=== PATIENT | female | born 1990 | race Caucasian/White ===

== ENCOUNTER 2016-11-27 02:39 | Emergency (ER) | payer SELFPAY ==
[~2016-11-27] VITALS: Ht 162.6 cm; Wt 49.9 kg
--- NOTE | 2016-11-27 02:55 | NUR ---
PT AMBULATED TO THE BATHROOM TO GIVE A URINE SAMPLE.
--- NOTE | 2016-11-27 02:59 | NUR ---
URINE SAMPLE OBTAINED. PT TRIAGED IN ROOM #4. PT IS C/O ABD PAIN SINCE YESTERDAY. PT STATED THAT HER BM'S WERE NORMAL. PT'S LMP WAS 11/22/16 AND FINISHED 2 DAYS AGO. 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 PT STATED THAT HER PAIN IS NOW 5/10. PT IS ON THE MONITOR AND CONTINUOUS PULSE OX.
--- NOTE | 2016-11-27 03:05 | NUR ---
JUDAH MCHUGH IS AT THE BEDSIDE.
--- NOTE | 2016-11-27 03:20 | NUR ---
KUB DONE AT THE BEDSIDE
--- NOTE | 2016-11-27 04:31 | NUR ---
PT APPEARS TO BE SLEEPING SOUNDLY WITH NO S/S OF PAIN OR DISTRESS NOTED.
--- NOTE | 2016-11-27 04:31 | NUR ---
Maryan sanchez in [facility] - 11/27/16 at 0431 by CHRISTOPH PT APPEARS TO BE SLEEPING SOUNDLY WITH NO S/S OF PAIN OR DISTRESS NOTED.
--- NOTE | 2016-11-27 04:31 | NUR ---
PT APPEARS TO BE SLEEPING SOUNDLY WITH NO S/S OF PAIN OR DISTRESS NOTED.
[2016-11-27 04:50] LABS: APPEARANCE,URINE CLOUDY (CLEAR); BILIRUBIN,URINE NEGATIVE (NEGATIVE); BLOOD, URINE NEGATIVE Ery/uL (NEGATIVE); COLOR,URINE YELLOW (YELLOW); KETONES,URINE NEGATIVE (NEGATIVE); LEUKOCYTE ESTERASE ,URINE NEGATIVE (NEGATIVE); NITRITE, URINE NEGATIVE (NEGATIVE); PH,URINE 7.5 (5.0-8.0); PROTEIN,URINE NEGATIVE (NEGATIVE); UGLUCOSE NEGATIVE (NEGATIVE); UROBILINOGEN,URINE 0.2 EU/dL (0.2)
[2016-11-27 04:54] LABS: BACTERIA,URINE 2+ /HPF (None Seen); RBC,URINE 0-2 /HPF (0-2); SQUAMOUS EPITHELIAL CELL,UR Few /HPF (None Seen); URINE AMORPHOUS URATE Many /HPF (None Seen); WBC,URINE 0-2 /HPF (0-3)
--- NOTE | 2016-11-27 05:03 | NUR ---
Patient discharged to home in stable condition. Written and verbal after care instructions given. Patient verbalizes understanding of instruction AND RX. PT AMBULATED OUT WITH A STEADY GAIT. VSS
[2016-11-27 05:04] VITALS: BP 126/78
== END 2016-11-27 05:05 | disposition home or self-care (01) ==
LOC: ER 02:39
DX: R82.71 Bacteriuria (principal); K59.00 Constipation, unspecified
CPT/HCPCS: 74000; 81001; 87077; 87086; 87186; 99285; A4606; Z7610; 81000-TC

== ENCOUNTER 2020-11-19 23:20 | Emergency (ER) | payer MEDICAID ==
--- NOTE | 2020-11-20 00:55 | NUR ---
called pt for triage, no one responded. per admiting pt stepped out.
--- NOTE | 2020-11-20 01:08 | NUR ---
called pt in wr. no one responded. per admitting pt never returned.
== END 2020-11-20 01:09 | disposition left against medical advice (07) ==
LOC: ER 23:20
DX: Z53.21 Procedure and treatment not carried out due to patient leaving prior to being seen by health care provider (principal)

== ENCOUNTER 2024-11-22 02:42 | Emergency (ER) | payer MEDICAID, OTHER ==
[~2024-11-22] VITALS: Ht 162.6 cm; Wt 49.9 kg
[2024-11-22] MEDS ORDERED: IBUPROFEN 600 MG TABLET ONE (03:18)
[2024-11-22] MEDS: IBUPROFEN 600 MG TABLET PO ONE (03:21)
[2024-11-22 03:45] LABS: APPEARANCE,URINE SLIGHTLY CLOUDY (CLEAR); BILIRUBIN,URINE NEGATIVE (NEGATIVE); BLOOD, URINE 3+ Ery/uL (NEGATIVE); COLOR,URINE YELLOW (YELLOW); KETONES,URINE NEGATIVE (NEGATIVE); LEUKOCYTE ESTERASE ,URINE TRACE (NEGATIVE); NITRITE, URINE POSITIVE (NEGATIVE); PROTEIN,URINE TRACE mg/dl (NEGATIVE); UGLUCOSE NEGATIVE (NEGATIVE); UROBILINOGEN,URINE 0.2 EU/dL (0.2)
[2024-11-22 03:52] LABS: PREGNANCY TEST URINE QUAL NEGATIVE (NEGATIVE)
[2024-11-22 04:05] LABS: ADD URINE CULTURE YES; BACTERIA,URINE Many /HPF (None Seen); SQUAMOUS EPITHELIAL CELL,UR Moderate /HPF (None Seen)
[2024-11-22] MEDS: NITROFURANTOIN/MONOHYDRATE MACROCRYSTALS 100 MG CAPSULE PO ONE (05:29)
[2024-11-22] MEDS ORDERED: NITR100C6 PO (05:33)
[2024-11-22 06:20] VITALS: BP 135/76; TEMP 98.5; O2SAT 98
== END 2024-11-22 06:21 | disposition home or self-care (01) ==
LOC: ER 02:45
DX: N39.0 Urinary tract infection, site not specified (principal); N93.9 Abnormal uterine and vaginal bleeding, unspecified; R30.0 Dysuria
CPT/HCPCS: 81001; 84703-TC; 87086-TC; 87186-TC